=== PATIENT | male | born 1985 | race Caucasian/White ===

== ENCOUNTER 2022-08-21 22:51 | Emergency (ER) | payer SELFPAY ==
[~2022-08-21] VITALS: Ht 170.2 cm; Wt 69.0 kg
[2022-08-21 23:45] LABS: BASOPHILS % 0.3 % (0.0-2.0); EOSINOPHILS % 2.6 % (0.0-5.0); HEMATOCRIT. 41.6 % (42.0-52.0); HEMOGLOBIN. 14.2 g/dL (14.0-18.0); LYMPHOCYTES % 49.5 % (20.0-50.0); MEAN CORPUSCULAR HEMOGLOBIN 30.9 pg (28.0-32.0); MEAN CORPUSCULAR VOLUME 90.7 fL (80.0-94.0); MEAN PLATELET VOLUME 7.6 fl (7.4-10.4); MONOCYTES % 6.8 % (2.0-8.0); NEUTROPHILS % 40.8 % (40.0-76.0); PLATELET 293 x1000/uL (130-400); RED BLOOD CELL COUNT 4.59 mill/uL (4.7-6.1); RED CELL DISTRIBUTION WIDTH 13.9 % (11.6-14.6)
[2022-08-21 23:55] LABS: INR 0.9; PARTIAL THROMBOPLASTIN TIME 26.4 sec (23.4-31.0); PROTHROMBIN TIME 9.9 sec (9.6-11.0)
[2022-08-21] MEDS ORDERED: MORPHINE SULFATE 4 MG/ML CPJ (NOT FOR IM USE) IV STA (23:56)
[2022-08-21] MEDS ORDERED: PANTOPRAZOLE SODIUM 40 MG/VIAL IV STA (23:56)
[2022-08-21] MEDS ORDERED: ONDANSETRON HCL 4MG/2ML INJ IV STA (23:56)
[2022-08-21 23:58] LABS: CHLORIDE 110 mEq/L (98-107)
[2022-08-22] MEDS ORDERED: SODIUM CHLORIDE 0.9% 1,000 ML IV ONE
[2022-08-22 00:09] LABS: ETHANOL BLOOD < 10 mg/dL (-10)
[2022-08-22] MEDS ORDERED: DIPHENHYDRAMINE 50MG/ML VIAL IV ONE (00:30)
[2022-08-22] MEDS ORDERED: IOHEXOL-300 100 ML BOTTLE ONE (01:14)
[2022-08-22] MEDS ORDERED: FENTANYL CITRATE/PF 50MCG/ML 2ML VIAL IV ONE (01:15)
[2022-08-22 03:30] VITALS: BP 123/86
== END 2022-08-22 03:40 | disposition left against medical advice (07) ==
LOC: ER 22:51
DX: K92.0 Hematemesis (principal); Z98.890 Other specified postprocedural states
CPT/HCPCS: 36415; 74177; 80053; 80320; 82140; 83605; 83690; 84484; 85025; 85610; 85730; 86850; 86900; 86901; 93005; 96374; 96375; 99285; C9113; J1200; J2270; J2405; J3010; J7030; Q9967; G0480

== ENCOUNTER 2023-02-11 18:00 | Emergency (ER) | payer MEDICAID, OTHER ==
[~2023-02-11] VITALS: Ht 170.2 cm; Wt 66.0 kg
[2023-02-11 18:16] VITALS: O2SAT 100
[2023-02-11] MEDS ORDERED: ONDANSETRON HCL 4MG/2ML INJ IV STA (19:01)
[2023-02-11] MEDS ORDERED: ONDANSETRON HCL 4MG/2ML INJ IV NR (19:01)
[2023-02-11] MEDS ORDERED: MORPHINE SULFATE 4 MG/ML CPJ (NOT FOR IM USE) IV STA (19:01)
[2023-02-11] MEDS ORDERED: MORPHINE SULFATE 4 MG/ML CPJ (NOT FOR IM USE) IV NR (19:01)
[2023-02-11] MEDS ORDERED: DIAZEPAM 5 MG TABLET PO ONE (19:15)
[2023-02-11] MEDS ORDERED: DIAZEPAM 5 MG TABLET PO NR (19:15)
[2023-02-11] MEDS ORDERED: SODIUM CHLORIDE 0.9% 1,000 ML IV ONE (19:15)
[2023-02-11 20:02] LABS: BASOPHILS % 0.3 % (0.0-2.0); EOSINOPHILS % 2.8 % (0.0-5.0); HEMATOCRIT. 41.8 % (42.0-52.0); LYMPHOCYTES % 36.3 % (20.0-50.0); MEAN CORPUSCULAR HEMOGLOBIN 32.2 pg (28.0-32.0); MEAN CORPUSCULAR HGB CONC 33.5 g/dL (31.0-37.0); MEAN CORPUSCULAR VOLUME 96.2 fL (80.0-94.0); MEAN PLATELET VOLUME 8.6 fl (7.4-10.4); MONOCYTES % 6.3 % (2.0-8.0); NEUTROPHILS % 54.3 % (40.0-76.0); PLATELET 247 x1000/uL (130-400); RED BLOOD CELL COUNT 4.35 mill/uL (4.7-6.1); RED CELL DISTRIBUTION WIDTH 13.4 % (11.6-14.6); WHITE BLOOD COUNT 7.4 x1000/uL (4.5-11.0)
[2023-02-11 20:08] LABS: INR 0.9; PROTHROMBIN TIME 9.9 sec (9.6-11.0)
[2023-02-11 20:20] LABS: ALANINE AMINOTRANSFERASE 14 IU/L (10-49); ALBUMIN 4.5 g/dL (3.2-4.8); ASPARTATE AMINOTRANSFERASE 19 IU/L (<34); BILIRUBIN TOTAL 0.3 mg/dL (0.1-1.0); CALCIUM 9.5 mg/dL (8.7-10.4); CARBON DIOXIDE 31 mEq/L (21-32); CHLORIDE 107 mEq/L (98-107); CREATININE 0.7 mg/dL (0.6-1.3); GLUCOSE 97 mg/dL (70-105); SODIUM 142 mEq/L (136-145); UREA NITROGEN BLOOD 8 mg/dL (9-23)
[2023-02-11 20:45] LABS: ETHANOL BLOOD < 10 mg/dL (<10)
[2023-02-11] MEDS ORDERED: DIAZEPAM 5 MG/ML 2ML CPJ IV ONE (21:00)
[2023-02-11] MEDS ORDERED: METHYLPREDNISOLONE SOD SUCC 40MG VIAL IV ONE (23:30)
[2023-02-11] MEDS ORDERED: METHYLPREDNISOLONE SOD SUCC 125MG/2ML (ACT-O-VIAL) IV NR (23:45)
[2023-02-12] MEDS ORDERED: EPINEPHRINE 1:1000 1 MG/ML AMP IM ONE
[2023-02-12] MEDS ORDERED: DIPHENHYDRAMINE 50MG/ML VIAL IV ONE
[2023-02-12] MEDS ORDERED: SODIUM CHLORIDE 0.9% 1,000 ML IV ONE
[2023-02-12 06:00] VITALS: TEMP 98.7
[2023-02-12 06:56] VITALS: BP 116/77; PULSE 70; RESP 14
[2023-02-12] MEDS ORDERED: HYDROCODONE/ACETAMINOPHEN 10/325MG TABLET PO PRN (07:00)
== END 2023-02-12 08:18 | disposition left against medical advice (07) ==
LOC: ER 19:23 → EDBEDREQ 02-12 05:56 → EDBEDREQDT 02-12 05:56 → EDBEDREQTM 02-12 05:56 → ER 02-12 08:18 → CANBEDREQ 02-12 19:56
DX: M54.16 Radiculopathy, lumbar region (principal); R53.1 Weakness
CPT/HCPCS: 80053; 80320; 85025; 85610; 36415; 72128; 72131; 72146; 72148; 93005; 96361 ×2; 96374; 96375 ×2; 99291; 96376; J3360; J2930; J2405; J2270; J7030 ×2; Z7610 ×2; J1200; J2920; G0480